=== PATIENT | female | born 1955 | race Caucasian/White ===

== ENCOUNTER 2016-12-18 10:19 | Emergency (ER) | payer OTHER ==
[~2016-12-18] VITALS: Ht 149.9 cm; Wt 104.5 kg
[~2016-12-18 10:19] MED LIST: ACET325T51 PO; ADV250INH INHALATION; ALBU2.5V4 INHALATION; ALBU8.5H4 IH; ASPI-973 PO; CEPH500C PO; CYCL10TA9 PO; CYCL5TAB PO; DILT240C85 PO; HYDR-656 PO; INSU100I SUBQ; INSU100V7 SUBQ; LOSA25TA21 PO; OMEP40CA36 PO; OXYC-474 PO; TIOT18CA3 IH
--- NOTE | 2016-12-18 10:23 | ED.REPORT ---
HPI-Abd Pain F 40 and Over Date of Service Dec 18, 2016 ED Provider: Dr. Madelyn Solis MD A 61 year old female with a history of GERD, hypertension, COPD, asthma, arthritis and diabetes mellitus presents to the ED via EMS complaining of upper abdominal discomfort that began this morning. Patient reports similar episodes of pain for the past few months but her symptoms have become progressively worse over the past 3 days. Associated symptoms include diarrhea, constipation, coughing emesis and flank pain. Patient reports that her "emesis" solely consists of phlegm. She describes her abdominal pain as "burning". Her symptoms reportedly begin after the patient "blows her nose". She denies recent fever, chills or changes in appetite. Her last BM was this morning and she describes the stool as "light brown and soft". Patient took her Omeprazole with little relief and reports using her albuterol inhaler more than normal. Nursing Notes Stated Complaint: ABDOMINAL PAIN Nursing Notes Reviewed: Yes Allergies: Coded Allergies: pramipexole Di-HCl (Verified Allergy, Severe, rash, 04/08/15) Scheduled Albuterol Neb Soln (Albuterol Neb Soln) 2.5 Mg/3 Ml Vial.neb 2.5 MG INHALATION TID Aspirin (Aspirin) 81 Mg Tablet.dr 81 MG PO DAILY Cephalexin (Cephalexin) 500 Mg Capsule 500 MG PO TID Cyclobenzaprine (Cyclobenzaprine) 5 Mg Tablet 2.5 MG PO HS Diltiazem ER (Cardizem CD) 240 Mg Cap.er.24h 240 MG PO DAILY Fluticasone/Salmeterol (Advair 250-50 Diskus) 1 Puff/Dose Puff 1 PUFF INHALATION BID Insulin Aspart (NovoLOG U-100 Pen) 100 Unit/Ml Insuln.pen 12 UNITS SUBQ TIDAC Insulin Glargine (Lantus U100 Insulin Vial) 100 Unit/Ml Vial 35 UNIT SUBQ HS Losartan Potassium (Losartan Potassium) 25 Mg Tablet 25 MG PO DAILY Omeprazole (Omeprazole) 40 Mg Capsule.dr 40 MG PO BID Tiotropium [place] (Spiriva) 18 Mcg Cap.w.dev 18 MCG IH DAILY Scheduled PRN Acetaminophen (Acetaminophen) 325 Mg Tablet 325-650 MG PO Q4H PRN PRN For Pain Albuterol HFA (Albuterol HFA) 8.5 Gm Hfa.aer.ad 2 PUFF IH Q4 PRN PRN For Shortness of Breath Cyclobenzaprine (Cyclobenzaprine) 10 Mg Tablet 10 MG PO BID PRN PRN Spasm Insulin Aspart (NovoLOG U-100 Pen) 100 Unit/Ml Insuln.pen 0-5 UNITS SUBQ sliding scale PRN PRN sliding scale Oxycodone (Roxicodone) 5 Mg Tablet 5-10 MG PO Q4H PRN PRN For Pain hydrOXYzine Hcl (HydrOXYzine Hcl) 25 Mg Tablet 25-50 MG PO Q6 HOURS PRN PRN For Spasm General Time Seen by MD: 10:22 Chief Complaint Abdominal pain Hx Obtained From: Patient, EMS Arrived By: Ambulance Sudden in Onset?: No Onset Occurred: 1 - 4 hours ago Symptom Duration: Since onset Progression since Onset: Constant Location: : Abdomen upper Quality: Burning Radiation: : Does not radiate Severity: Current: Moderate Severity: Maximum: Moderate Associated with: Reports: Constipation, Diarrhea, Vomiting, Denies: Chills, Fever Pertinent Negative: Pt denies other symptoms Recent Healthcare: No recent doctor visit, No recent hospitalization Risk Factors )( AAA Risk Stratification Hypertension Risk factors reviewed Past Medical History Past Medical History Notes: PCP: Dr. Nela Mike MD Past Medical History 1. COPD 2. GERD 3. Diabetes mellitus 4. Hypertension 5. Kidney stones 6. Asthma 7. hx methamphetamine abuse Past Surgical History 1. Bilat wrist surgery 2. Bilat ankle surgery secondary to fracture 3. Hip replacement 4. 5. Cholecystectomy 6. Inguinal hernia repair 7. Rotator cuff repair Family History Noncontributory Smoking History Former Smoker Social History Alcohol Use: Denies alcohol use Drug Use: Meth, THC Other Social History: Local resident Ambulatory Status Independent Review of Systems Constitutional: Denies: Chills, Fever GI: Reports: Abdominal pain (upper), Constipation, Diarrhea, Vomiting ( "vomiting phlegm" ) Musculoskeletal: Reports: Back pain Complete sys rev & neg: except as marked. Physical Exam Vital Signs Vital Signs (First) Date Time Temp Pulse Resp B/P Pulse Ox O2 Delivery O2 Flow Rate FiO2 12/18/16 10:26 36.5 92 154/73 96 Room Air Initial VS: Reviewed Head / Eyes: Atraumatic, Normocephalic, PERRL Neck: Supple, Non-tender, Full range of motion Extremities: Vascular intact, Neuro intact, No swelling, No tenderness Skin: Warm, Dry, No cyanosis Neurologic: Alert, Oriented, Nonfocal Psychiatric: Mood/affect normal, Behavior normal, Normal thought content General/Constitutional: Awake, Alert Respiratory / Chest: Atraumatic, Breath sounds NL, Breath sounds = bilat, No respiratory distress Cardiovascular: Heart rate NL, Regular rhythm, Heart sounds NL Abdomen: Atraumatic, Soft Tenderness/Guarding/Rebound: Positive: Guarding voluntary (Intermittent), Tender diffuse Back: Atraumatic Flank / Spine / Paraspinal: Positive: Flank tender R Interpretation & Diagnostics Lab Results Interpretation Result Diagram: 12/18/16 1050 12/18/16 1050 Test 12/18/16 10:50 12/18/16 11:15 White Blood Count 12.7th/mm3 (3.8-10.1) Red Blood Count 5.68mil/mm3 (3.90-5.20) Hemoglobin 15.1g/dL (12.0-15.6) Hematocrit 47.0% (35.0-46.0) Mean Corpuscular Volume 82.7fL (81-100) Mean Corpuscular Hemoglobin 26.6pg (27.0-35.0) Mean Corpuscular Hemoglobin Concent 32.1% (32.0-37.0) Red Cell Distribution Width 15.0% (12.3-15.4) Platelet Count 283bil/L (150-400) Neutrophils (%) (Auto) 74.0% (40-74) Lymphocytes (%) (Auto) 19.2% (14-46) Monocytes (%) (Auto) 5.3% (4-12) Eosinophils (%) (Auto) 1.0% (0-5) Basophils (%) (Auto) 0.2% (0-3) Sodium Level 139mEq/L (134-144) Potassium Level 4.2mEq/L (3.5-5.2) Chloride Level 101mEq/L (97-108) Carbon Dioxide Level 21mmol/L (18-29) Blood Urea Nitrogen 12mg/dL (8-27) Creatinine 0.52mg/dL (0.57-1.00) Estimat Glomerular Filtration Rate 171mL/min (>59) Glucose Level 258mg/dL (60-99) Calcium Level 9.1mg/dL (8.5-10.1) Magnesium Level 1.8mg/dL (1.6-2.6) Total Bilirubin 0.5mg/dL (0.0-1.2) Aspartate Amino Transf (AST/SGOT) 17U/L (0-50) Alanine Aminotransferase (ALT/SGPT) 20U/L (0-32) Alkaline Phosphatase 109U/L (25-165) Total Protein 6.8g/dL (6.4-8.4) Albumin 3.9g/dL (3.4-5.0) Lipase 23U/L (13-60) Hold St Top Tube Received (Received) Urine Color Straw (YELLOW) Urine Appearance Clear (CLEAR,HAZY) Urine pH 6.0 (5.0-8.0) Urine Specific [place] 1.005 (1.003-1.035) Urine Protein Negativemg/dL (NEG,TRACE) Urine Glucose (UA) 100mg/dL (NEGATIVE) Urine Ketones Negativemg/dL (NEGATIVE) Urine Occult Blood Negative (NEGATIVE) Urine Nitrite Negative (NEGATIVE) Urine Bilirubin Negative (NEGATIVE) Urine Urobilinogen Normalmg/dL (NORMAL) Urine Leukocyte Esterase Negative (NEGATIVE) Urine RBC 0-2/hpf (0-2) Urine WBC 0-5/hpf (0-5) Urine Epithelial Cells Few/hpf (NONE-MOD) Urine Crystals None seen (NONE SEEN) Urine Bacteria None/hpf (NONE-FEW) Urine Hyaline Casts None/lpf (NONE) Urine Granular Casts None seen (NONE SEEN) Urine Waxy Casts None seen (NONE SEEN) Urine Red Blood Cell Casts None seen (NONE SEEN) Urine White Blood Cell Casts None seen (NONE SEEN) Urine Mucus None seen (None Seen) Urine Trichomonas None seen (NONE SEEN) Urine Yeast None (NONE SEEN) Urinalysis Comment None Urine Culture Reflexed Not indicated X-Ray Chest Interpretation Chest Xray Interpretation: X-Ray Abdominal Interpretation IMPRESSION: Nonspecific bowel gas pattern, prior cholecystectomy. Prior left lower quadrant surgical clips. Dictated by: Osman Hitchcock M.D. on 12/18/2016 at 12:00 Interpretation / Wet Read by: Interpret - Radiologist Re-Eval/Medical Decision Re-Evaluation/Progress : Time of Eval: 12:24 Patient Status: Condition improved Re-Evaluation/Progress Note: I, Dr. Gates, assumed care of this patient. Labs were reviewed and patient is reexamined. Belly is soft and no surgery is required at this time. All of the patient's questions are addressed upon reexamination. She is informed of her lab results and X-ray results. Counseled Regarding: Diagnosis, Need for follow-up, When/why to return to ED Discharge & Departure Shift Change Sign-Out Patient Care Transferred: Yes Discussed Complaint(s): Yes Laboratory Evaluation: Ordered, not yet done Imaging Studies: Done, wet read by me Response to Therapy: Improved Dr. Gates Primary Impression: Constipation Constipation type: unspecified constipation type Qualified Code: K59.00 - Constipation, unspecified Additional Impression: Abdominal pain Abdominal location: generalized Qualified Code: R10.84 - Generalized abdominal pain Ruled Out: Hernia, Pneumonia, Renal stone, Appendicitis, Bowel infarction Disposition: Home Discharge Condition All VS Reviewed: Yes Condition: Improved Patient Instructions: Constipation (ED) Additional Instructions: Thank you for trusting us with your care this morning. Your emergency department evaluation including examination, lab results and chest X-ray are reassuring at this time. Your lab work did revel slightly elevated white blood cell count, but nothing that I am concerned with today. A clear cause of your symptoms was not identified at this time and I recommend you schedule a follow up appointment with Dr. Mike in the next week for a recheck. You need to talk with her specifically about the phlem and acid you are noting first thing every morning. I will send you home with a bottle of magnesium citrate. You should experience a large amount of stool within a few hours of taking the medication. If you do not experience a bowel movement within 24 hours, please drink another bottle. You may purchase this at a grocery store. Please use Miralax, one capful of the powder every morning, to help stimulate a soft bowel movement. This should help relieve your abdominal discomfort and may even help with the acid feelings in the morning. Please return to the ED if you begin to experience any new or worsening symptoms including any worsening abdominal pain, nausea, vomiting, lightheadedness, chills or fever. Referrals: Nela Mike MD (PCP) Care Transferred to: Dr. Gates Care Transferred at: 12:00 Scribe Attestation Portions of this note were transcribed by Ayan Chaudhary. Dr. Will Delaney and Dr. Gates personally performed the history, physical exam and medical decision- making; I reviewed and confirmed the accuracy of the information in the transcribed note. Signed by: Catherine Bangura, 12/18/16 1240. copies to: Nela Mike MD, Jena M MD Dec 18, 2016 10:23 AYAN CHAUDHARY Dec 18, 2016 10:30 Shanna Gates MD Dec 18, 2016 12:50
[2016-12-18 10:26] VITALS: BP 154/73; PULSE 92; O2SAT 96
[2016-12-18] MEDS ORDERED: Pantoprazole 4 mg/mL 10 mL Inj IVPUSH ONE (10:35)
[2016-12-18] MEDS ORDERED: 0.9% Sodium Chloride 1,000 ML IV ONE (10:35)
[2016-12-18] MEDS ORDERED: Sucralfate 100 mg/mL 10 mL Suspension PO ONE (10:35)
[2016-12-18] MEDS ORDERED: HYDROcodone-APAP 5-325 mg Tablet PO ONE (10:35)
[2016-12-18 11:07] LABS: BASOPHILS % (AUTO) 0.2 % (0-3); MONOCYTES % (AUTO) 5.3 % (4-12); Mean Corpuscular Hemoglobin 26.6 pg (27.0-35.0); Mean Corpuscular Volume 82.7 fL (81-100); Platelet Count 283 bil/L (150-400)
[2016-12-18 11:59] LABS: Magnesium 1.8 mg/dL (1.6-2.6)
[2016-12-18 12:00] LABS: APPEARANCE,URINE CLEAR (CLEAR,HAZY); COLOR,URINE STRAW (YELLOW); OCCULT BLOOD,URINE NEGATIVE (NEGATIVE); UROBILINOGEN,URINE NORMAL (NORMAL)
--- NOTE | 2016-12-18 12:02 | DRSVH ---
PROCEDURE: X-RAY ACUTE ABDOMINAL SERIES ([id number]) INDICATIONS: general abdominal pain TECHNIQUE: One view chest and two views of the abdomen were acquired. COMPARISON: [facility], , [facility] ACUTE SERIES, 04/30/2013, 14:00. [facility], , [facility] ACUTE SERIES, 01/10/2013, 13:39. FINDINGS: Surgical changes and devices: Prior spine surgery, cholecystectomy clips, surgical clips right lower quadrant. Chest: Lungs are clear. Heart size is normal. No pleural effusions. No pneumoperitoneum. Abdomen: Bowel gas pattern is normal. No suspicious calcifications. Visualized solid organ contour s appear normal. Bones: No suspicious bony lesions. IMPRESSION: Nonspecific bowel gas pattern, prior cholecystectomy. Prior left lower quadrant surgical clips. Dictated by: Osman Hitchcock M.D. on 12/18/2016 at 12:00 Approved by: Osman Hitchcock M.D. on 12/18/2016 at 12:00
[2016-12-18 12:43] VITALS: BP 135/56; PULSE 65; O2SAT 93
[2016-12-18] MEDS ORDERED: POLY17PO2 PO (12:53)
[2016-12-18 13:01] VITALS: BP 135/56; PULSE 65; O2SAT 93
== END 2016-12-18 13:10 | disposition home or self-care (01) ==
LOC: SED 10:19 → EDUNIT# 10:19 → EDBD 10:19 → SED 13:10
DX: K59.00 Constipation, unspecified (principal); E11.9 Type 2 diabetes mellitus without complications; K21.9 Gastro-esophageal reflux disease without esophagitis; J44.9 Chronic obstructive pulmonary disease, unspecified; Z87.891 Personal history of nicotine dependence; Z79.82 Long term (current) use of aspirin; Z79.4 Long term (current) use of insulin; Z79.899 Other long term (current) drug therapy; Z88.8 Allergy status to other drugs, medicaments and biological substances
CPT/HCPCS: 36415; 74022; 80053; 81000; 82948; 83690; 83735; 85025; 96361; 96374; 99285; J7030

== ENCOUNTER 2017-04-26 16:35 | Inpatient (IN) | payer OTHER, MEDICAID ==
[~2017-04-26] VITALS: Ht 149.9 cm; Wt 102.6 kg
[2017-04-26] VITALS (8 sets, daily range): BP systolic 126–147; BP diastolic 74–84; PULSE 74–100; RESP 16–24; O2SAT 92–98
[~2017-04-26 16:35] MED LIST changes: +POLY17PO2 PO
--- NOTE | 2017-04-26 16:59 | ED.REPORT ---
HPI-Dyspnea / Wheezing Date of Service Apr 26, 2017 ED Provider: Robina Layne History of Present Illness: Sent over by teofilo a female in pulmonary . finishing a steroid taper. Did not see pulmonolgy but was seen in primray care and told not to go to urgent care by pulmonology. does breathing treatment 3 times a day , albuterol only no recent chest xray on steroids for 3 weeks. Initially had a course of azithromycin also Nursing Notes Stated Complaint: SENT BY Chief Complaint: Respiratory Complaints Nursing Notes Reviewed: Yes Allergies: Coded Allergies: pramipexole Di-HCl (Verified Allergy, Severe, rash, 04/26/17) Scheduled Albuterol Neb Soln (Albuterol Neb Soln) 2.5 Mg/3 Ml Vial.neb 2.5 MG INHALATION TID Aspirin (Aspirin) 81 Mg Tablet. 81 MG PO DAILY Cephalexin (Cephalexin) 500 Mg Capsule 500 MG PO TID Cyclobenzaprine (Cyclobenzaprine) 5 Mg Tablet 2.5 MG PO HS Diltiazem ER (Cardizem CD) 240 Mg Cap.er.24h 240 MG PO DAILY Fluticasone/Salmeterol (Advair 250-50 Diskus) 1 Puff/Dose Puff 1 PUFF INHALATION BID Insulin Aspart (NovoLOG U-100 Pen) 100 Unit/Ml Insuln.pen 12 UNITS SUBQ TIDAC Insulin Glargine (Lantus U100 Insulin Vial) 100 Unit/Ml Vial 35 UNIT SUBQ HS Losartan Potassium (Losartan Potassium) 25 Mg Tablet 25 MG PO DAILY Omeprazole (Omeprazole) 40 Mg Capsule.dr 40 MG PO BID Polyethylene Glycol 3350 (Polyethylene Glycol 3350) 17 Gm Powd.pack 17 GM PO DAILY 17gm, 1 capfull, with your coffee in the am. Extra water will help as well. Tiotropium [place] (Spiriva) 18 Mcg Cap.w.dev 18 MCG IH DAILY Scheduled PRN Acetaminophen (Acetaminophen) 325 Mg Tablet 325-650 MG PO Q4H PRN PRN For Pain Albuterol HFA (Albuterol HFA) 8.5 Gm Hfa.aer.ad 2 PUFF IH Q4 PRN PRN For Shortness of Breath Cyclobenzaprine (Cyclobenzaprine) 10 Mg Tablet 10 MG PO BID PRN PRN Spasm Insulin Aspart (NovoLOG U-100 Pen) 100 Unit/Ml Insuln.pen 0-5 UNITS SUBQ sliding scale PRN PRN sliding scale Oxycodone (Roxicodone) 5 Mg Tablet 5-10 MG PO Q4H PRN PRN For Pain hydrOXYzine Hcl (HydrOXYzine Hcl) 25 Mg Tablet 25-50 MG PO Q6 HOURS PRN PRN For Spasm General Time Seen by MD: 16:57 Chief Complaint Shortness of breath, Other (copd excerbation) Hx Obtained From: Patient Sudden in Onset?: No Onset Occurred: More than a week ago... (3 weeks) Past Medical History Past Medical History Notes: PCP: Dr. Nela Mike MD Past Medical History 1. COPD 2. GERD 3. Diabetes mellitus 4. Hypertension 5. Kidney stones 6. Asthma 7. hx methamphetamine abuse Reports: COPD, Hyperlipidemia, Hypertension Past Surgical History 1. Bilat wrist surgery 2. Bilat ankle surgery secondary to fracture 3. Hip replacement 4. 5. Cholecystectomy 6. Inguinal hernia repair 7. Rotator cuff repair Family History Noncontributory Smoking History Former Smoker Social History Alcohol Use: Denies alcohol use Drug Use: Meth, THC Other Social History: Local resident Occupation lives by self, 1 story apartment on the first floor. no work or school 04/26/2017 Ambulatory Status Independent Review of Systems Basic Review of Systems Eyes: Vision NL, No discharge GI: No vomiting : No dysuria, No frequency Endocrine: No cold intolerance, No heat intolerance Physical Exam Initial Vital Signs Vital Signs (First) Date Time Temp Pulse Resp B/P Pulse Ox O2 Delivery O2 Flow Rate FiO2 04/26/17 16:43 36.7 100 24 141/83 94 Room Air Initial VS: Reviewed, Vital signs normal Head / Eyes: Atraumatic, Normocephalic, PERRL ENT: Mucous membranes moist, Conjunctiva normal, No scleral icterus Abdomen / GI: Soft, Non-tender, No guarding, No rebound, No distention Back: No CVA tenderness Lymphatic: No lymphadenopathy Extremities: Vascular intact, Neuro intact, No swelling, No tenderness Skin: Warm, Dry, No cyanosis Neurologic: Alert, Oriented, Nonfocal Psychiatric: Mood/affect normal, Behavior normal, Normal thought content General/Constitutional: Awake, Alert, No acute distress, Well appearing, Well developed, Well hydrated, Well nourished, Cooperative, Not toxic appearing Neck: Atraumatic, Supple, No meningismus, Full range of motion, No adenopathy Respiratory / Chest: Atraumatic breath sounds greatly decreased through out. Minimal air movement. patient with increased RR with any movement. At rest patient is comfortable, with movement sats drop to 88% Cardiovascular: Heart rate NL, Regular rhythm, Heart sounds NL, No gallop, No murmurs, No rubs ENT: Atraumatic, Airway patent, Mucous membranes moist, Pharynx NL Abdomen: Atraumatic, Soft, Non-tender Interpretation & Diagnostics Lab Results Interpretation Result Diagram: 04/26/17 1815 04/26/17 1913 Test 04/26/17 18:15 04/26/17 19:13 White Blood Count 16.6th/mm3 (3.8-10.1) Red Blood Count 5.61mil/mm3 (3.90-5.20) Hemoglobin 15.0g/dL (12.0-15.6) Hematocrit 45.7% (35.0-46.0) Mean Corpuscular Volume 81.5fL (81-100) Mean Corpuscular Hemoglobin 26.7pg (27.0-35.0) Mean Corpuscular Hemoglobin Concent 32.8% (32.0-37.0) Red Cell Distribution Width 14.3% (12.3-15.4) Platelet Count 318bil/L (150-400) Neutrophils (%) (Auto) 70.5% (40-74) Lymphocytes (%) (Auto) 23.9% (14-46) Monocytes (%) (Auto) 5.0% (4-12) Eosinophils (%) (Auto) 0.1% (0-5) Basophils (%) (Auto) 0.1% (0-3) Lactic Acid Level 1.6mmol/L (0.4-2.0) Sodium Level 141mEq/L (134-144) Potassium Level 4.6mEq/L (3.5-5.2) Chloride Level 103mEq/L (97-108) Carbon Dioxide Level 23mmol/L (18-29) Blood Urea Nitrogen 18mg/dL (8-27) Creatinine 0.64mg/dL (0.57-1.00) Estimat Glomerular Filtration Rate 134mL/min (>59) Glucose Level 145mg/dL (60-99) Calcium Level 9.3mg/dL (8.5-10.1) Total Bilirubin 0.2mg/dL (0.0-1.2) Aspartate Amino Transf (AST/SGOT) 20U/L (0-50) Alanine Aminotransferase (ALT/SGPT) 19U/L (0-32) Alkaline Phosphatase 98U/L (25-165) Troponin T < 0.010ug/L (0.0-0.011) Pro-B-Type Natriuretic Peptide 101.7pg/mL (0-287) Total Protein 6.7g/dL (6.4-8.4) Albumin 3.5g/dL (3.4-5.0) Procalcitonin 0.02ng/mL (0.00-0.08) X-Ray Chest Interpretation Chest Xray Interpretation: PROCEDURE: CT FACE WITH CONTRAST ([id number]) INDICATIONS: ? anything behind eye ? anything drainable TECHNIQUE: After the administration of intravenous contrast, 3.0 mm axial sections acquired from the mid-neck to the frontal sinuses, with coronal reformatting. For radiation dose reduction, the following was used: automated exposure control. COMPARISON: None. FINDINGS: Image quality: Good Soft tissues: There is soft tissue swelling over the nose, left frontal and temporal portions of the scalp and face done over the orbit and to the level approximately of the mid maxillary sinus. The soft tissue swelling is all pre-septal. No post septal edema or intra-or extraconal abnormality is seen. Visualized portion of brain is considered normal. Vascular: Visualized vascular structures appear patent throughout. Bony vascular foramina and canals appear normal. Bones: Facial bones appear intact, without fractures, erosions, or destruction. Visualized portions of the skull base and auditory canals also appear normal. Sinuses: Paranasal sinuses are aerated without fluid levels, mucosal thickening, or mucoceles. Mastoid air cells are aerated. IMPRESSION: Prominent subcutaneous edema/inflammation over the left side of the face. No intracranial involvement is seen. No post septal orbital involvement is seen. Sinuses are clear. No radiopaque foreign bodies are seen. Dictated by: Brad Foy M.D. on 04/26/2017 at 18:23 Approved by: Brad Foy M.D. on 04/26/2017 at 18:28 Re-Eval/Medical Decision Med Decision/Clinical Course 61 year old female presents for SOB. Has been on steroid taper 3 different times with the first week was also on antibiotics. Was seen at primary care today who consulted with pulmonology, recommend to ER . No sign of pneumonia, OR or congestive heart failure. Patient with significant SOB with any movement, admit Discharge & Departure Impression: Primary Impression: COPD exacerbation Disposition: ADMITTED TO HOSPITAL Referrals: Nela Mike MD (PCP) EDSupervising Provider for APC: Corey Begum MD copies to: Nela Mike MD, Sue ARNP Apr 26, 2017 16:59
[2017-04-26] MEDS ORDERED: Albuterol-Ipratropium 3 mL Inhalation Solution NEB ONE ×2 (17:00→19:00)
--- NOTE | 2017-04-26 18:16 | DRSVH ---
PROCEDURE: X-RAY CHEST, TWO VIEWS ([id number]) INDICATIONS: cough sob TECHNIQUE: 2 views of the chest were acquired. COMPARISON: [facility], CR, XR ABD ACUTE SERIES 3VW, 12/18/2016, 10:59. FINDINGS: Surgical changes and devices: sports doctor leads are present. Vascular clips consistent with inna cystectomy are present. Lungs and pleura: No pleural effusions or pneumothorax. Lungs are clear. Mediastinum: Mediastinal contours are normal. Heart size is normal. Bones and chest wall: No suspicious bony abnormalities. Soft tissues appear unremarkable. IMPRESSION: Acute disease is not identified in the two-view chest. Dictated by: Brad Foy M.D. on 04/26/2017 at 18:14 Approved by: Brad Foy M.D. on 04/26/2017 at 18:15
[2017-04-26 18:27] LABS: BASOPHILS % (AUTO) 0.1 % (0-3); EOSINOPHILS % (AUTO) 0.1 % (0-5); Mean Corpuscular Hemoglobin 26.7 pg (27.0-35.0); Mean Corpuscular Volume 81.5 fL (81-100); NEUTROPHILS % (AUTO) 70.5 % (40-74); Platelet Count 318 bil/L (150-400)
[2017-04-26] MEDS ORDERED: MethylprednisoLONE Sodium Succinate 62.5 mg/mL 2 mL Inj IVPUSH ONE (19:00)
[2017-04-26] MEDS ORDERED: Alum-Mag Hydrox-Simeth 30 mL Suspension PO PRN (19:35)
[2017-04-26] MEDS ORDERED: Ondansetron 2 mg/mL 2 mL Inj IVPUSH PRN (19:35)
[2017-04-26 19:43] LABS: TROPONIN T < 0.010 ug/L (0.0-0.011)
--- NOTE | 2017-04-26 20:09 | PCM.HPMED ---
Subjective Date of Service Apr 26, 2017 Primary Provider: Admitting Physician: Primary Care Physician: Nela Mike MD Attending Physician: Admit Status: From the Emergency Department Chief Complaint: shortness of breath History of Present Illness: Patient is a 61-year-old female presented from home to the ED with respiratory symptoms She carries a medical history significant for diabetes type II, hypertension, dyslipidemia, COPD, and obstructive sleep apnea in addition to depression, anxiety/PTSD with the prior history of cocaine and methamphetamine use. Patient states significant shortness of breath with associated wheezing, increasing productive cough, copious sputum, and nasal congestion. Color of her mucus is initially brown, now white. Symptoms started about 3 weeks ago where she initially amoxicillin. Symptoms however was went unabated. One week ago, patient reported significant shortness of breath with exertion. She was only able to walk from bedroom to toilet without shortness of breath, whereas before she was able to walk from house to mailbox. Additionally, patient has increase in oxygen requirement, using 2-2.5 L during the daytime as well as nighttime. A course of azithromycin and prednisone has not helped. Patient contacted assembly inspector, which is just the patient be evaluated in the ED. In the ED, patient vitals remained stable with O2 93% on room air. Patient had significant active cough, wheezing with labs WBC 16.6. Patient given 1 dose of Solu-Medrol and 2 rounds of DuoNeb's prior to admission onto the floor for COPD exacerbation. Review of Systems: A comprehensive review of systems was conducted with the patient and found to be negative except as above in the History of Present Illness. Allergies Coded Allergies: pramipexole Di-HCl (Verified Allergy, Severe, rash, 04/26/17) Home Medications Albuterol HFA when necessary Aspirin 81 mg Cephalexin 500 mg 3 times a day Cyclobenzaprine 10 mg twice a day when necessary Cardizem 240 mg daily Advair 250/50 500 one puff twice a day Hydroxyzine 25-50 mg every 6 hours when necessary Insulin Lantus 35 units nightly NovoLog per sliding scale Losartan 25 mg daily Omeprazole 40 mg twice a day Roxicodone 510 milligram by mouth every 4 hours when necessary Polyethylene glycol when necessary Spiriva 18 MCG daily PMH Hypertension Dyslipidemia Diabetes type II Morbid obese Obstructive sleep apnea Osteoarthritis Fibromyalgia GERD Depression Anxiety/PTSD History of cocaine/methamphetamine use Surgical History Abdominal hernia status post ventral hernia repair Cholecystectomy Ankle fracture status post open reduction internal fixation Family History Father with seizure disorder Mother with diabetes Social History Hx Alcohol Use: No Hx Substance Use: Yes (marijuana daily (3 bowls/day )) Hx Tobacco Use: Yes (45 pack years, quit 1 year ago) Smoking Status: Former Smoker Exam Vital Signs Vital Sign - Last Date Time Temp Pulse Resp B/P Pulse Ox O2 Delivery O2 Flow Rate FiO2 04/26/17 19:19 83 20 93 Room Air 04/26/17 17:40 126/84 04/26/17 16:43 36.7 Exam General: No acute distress, appropriately interactive, speaking full sentences HEENT: Normocephalic, atraumatic. PERRLA, EOMI, Anicteric sclerae, moist conjunctivae. Neck: No JVD, No bruits. No lymphadenopathy or thyromegaly. Cardiovascular: Regular rate and rhythm with no murmurs, rubs, or gallops appreciated Pulmonary: Bilateral air sound, significant wheezes, coarse breath, no crackles however, no accessory muscle use Abdomen: +Bowel sound, Soft, nontender, nondistended. Extremities: No clubbing or cyanosis, no lymphedema, no b/l lower leg edema Skin: Normal temperature, turgor, and texture; no rash. No visualized skin ulcer. Neurological: CN II-VII grossly intact, moving equally on all 4 extremities Psychiatric: Normal mood and affect. AOx3 Lab and Diagnostics Result Diagram: 04/26/17 1815 04/26/17 1913 X-Rays, CTs and MRIs PROCEDURE: X-RAY CHEST, TWO VIEWS ([id number]) INDICATIONS: cough sob IMPRESSION: Acute disease is not identified in the two-view chest. Dictated by: Brad Foy M.D. on 04/26/2017 at 18:14 Assessment & Plan Patient is a 61-year-old female with a medical history significant for diabetes type II, hypertension, dyslipidemia, COPD, and obstructive sleep apnea in addition to depression, anxiety/PTSD with the prior history of cocaine and methamphetamine use admitted for COPD exacerbation. Acute on chronic respiratory failure, POA -trigger likely viral, post-viral pna? -DuoNeb, Solu-medrol 125mg Q6H, can switch for prednisone 40mg daily. -NC to O2 93%. COPD exacerbation, POA -treatment as above -ceftriaxone / azithromycin Leukocytosis -no neutrophilic elevation, negative procalcitonin 0.2, -likely steroid induced, some concerns for PNA -Blood, sputum culture, urine antigen, viral PCR ordered -ceftriaxone plus azithromycin Diabetes type II -Continue home Lantus 35 units at bedtime -Lispro medium sliding scale -A1c pending Hypertension -Continue home losartan and Cardizem GERD -Protonix 40 mg twice a day CODE STATUS full code DVT prophylaxis heparin subcutaneous Patient Status: Patient is admitted under inpatient status with expected length of stay GREATER than 2 midnights due to severity of presenting symptoms, risk of adverse event, and complexity of treatment plan. GI Prophylaxis: Proton Pump Inhibitor VTE Prophylaxis: Sub-Q Heparin (Unfractionated) Resuscitation Status: CPR: Attempt Resuscitation Attending Statement The patient was seen and examined together with house staff on 04/26/2017 and I agree with the history, exam and plan as outlined in the note above. Nando Dunn DO Apr 26, 2017 20:08 Ivy Kee DO Apr 27, 2017 02:09
[2017-04-26] MEDS: Albuterol-Ipratropium 3 mL Inhalation Solution NEB SCH (21:07)
[2017-04-26] MEDS ORDERED: 0.9% Sodium Chloride 100 ML ONE (22:08)
[2017-04-26] MEDS: cefTRIAXone Inj 2,000 MG in Dextrose 5% Minibag Plus 50 ML IV SCH (22:12)
[2017-04-26 22:31] LABS: APPEARANCE,URINE HAZY (CLEAR,HAZY); COLOR,URINE STRAW (YELLOW); OCCULT BLOOD,URINE NEGATIVE (NEGATIVE); PH,URINE 5.5 (5.0-8.0); UROBILINOGEN,URINE NORMAL (NORMAL)
--- NOTE | 2017-04-26 22:54 | NUR ---
Admit Pt arrived on unit #[id number] via stretcher from ED with all personal belongings. VSS. No complaints of pain or discomfort. SOB with exertion and at rest. Allergy sticker placed on armband. Admit completed by Admit RNCatalina. Unable to complete home medication list as pt is poor historian. Pt orders medications through the mail. She will call her son in the am and have him bring medication list in. Oriented to unit hospital and fall policy. Bed locked, low position. SBA and non slip socks on for safety. Call light within reach, using appropriately. Frequent rounding in place. Pleasant and cooperative with care.
[2017-04-26] MEDS: Azithromycin Inj 500 MG in Dextrose 5% w/Vial Mate 250 ML IV SCH (22:59)
--- NOTE | 2017-04-26 23:30 | NUR ---
ADMIT NOTE Pt arrived to the unit at 2039 via gurney. She was alert and oriented x4, able to ambulate independent from outside the room to bed. Gait steady, denies chest pain, but c/o SOB. All vital signs stable with BP slightly elevated 147/74, afebrile. Pt was on RA and was able to communicate needs. Oriented to room and equipment; encouraged to call when going to bathroom, pt indicates understanding. Admit data base and admit assessment done. Med reconciliation done but not complete, pt unable to remember some meds, but reported she will ask family to bring meds in tomorrow. Skin intact, some redness noted on lateral side of right great toe, per family she "bumped onto her walker". Area open to air, no open skin noted.
[2017-04-27] VITALS (12 sets, daily range): BP systolic 123–152; BP diastolic 67–85; PULSE 75–102; RESP 18–20; O2SAT 89–96
[2017-04-27] MEDS ORDERED: Albuterol-Ipratropium 3 mL Inhalation Solution NEB PRN (00:10)
[2017-04-27] MEDS ORDERED: Glucose 40% Oral Gel 15 Gm Tube PO PRN (00:10)
[2017-04-27] MEDS: Insulin GLARgine 100 Unit/mL Syringe SUBQ SCH ×2 (00:10→20:29)
[2017-04-27] MEDS ORDERED: Dextrose 10% 250 ML IV PRN (00:20)
[2017-04-27] MEDS: Heparin 5,000 Unit/mL Inj SUBQ SCH ×3 (03:30→17:23)
[2017-04-27] MEDS: MethylprednisoLONE Sodium Succinate 62.5 mg/mL 2 mL Inj IVPUSH SCH ×3 (03:30→14:41)
[2017-04-27] MEDS ORDERED: Albuterol 2.5 mg/3 mL Inhalation Solution NEB ONE (05:05)
[2017-04-27 06:22] LABS: BASOPHILS % (AUTO) 0.1 % (0-3); EOSINOPHILS % (AUTO) 0 % (0-5); MONOCYTES % (AUTO) 1.2 % (4-12); Mean Corpuscular Hemoglobin 26.4 pg (27.0-35.0); Mean Corpuscular Volume 80.8 fL (81-100); Platelet Count 301 bil/L (150-400)
--- NOTE | 2017-04-27 06:37 | NUR ---
PAIN Pt complained of abdominal pain stating, "It started awhile ago and only hurts sometimes." Pt denies constipation. No redness or swelling. Administered Tylenol, effective. Pt reports no pain at this time. Will continue to monitor.
[2017-04-27] MEDS: Insulin LISPRO 300 Unit/3 mL Inj SUBQ SCH ×4 (07:26→20:28)
[2017-04-27] MEDS: Diltiazem CD 240 mg ER24 Capsule PO SCH (07:27)
[2017-04-27] MEDS: Pantoprazole 40 mg ER24 Tablet PO SCH ×2 (07:36→20:29)
[2017-04-27] MEDS: Albuterol-Ipratropium 3 mL Inhalation Solution NEB SCH ×4 (08:29→21:46)
--- NOTE | 2017-04-27 09:13 | NUR ---
Social Work-initial assessment: Data:See initial assessment. Pt is a 61 y/o female who was admitted on 04/26/17 for COPD exacerbation per H&P. Pt's insurance is [facility] Blind/disabled and PCP is Martha Mike MD. EMR reviewed. SW met with pt at bedside, SW role explained. Pt is alert and oriented x3. Pt resides at home alone in a ground level apartment where she remains independent with basic ADLS. Pt uses a fww at baseline and does not drive. Pt uses dial a ride for transport. Pt has no HH history, but has been to [facility] in the past. Pt has no retirement care insurance or VA benefits. SW discussed DPOA/ advanced directive, pt has not completed this, SW provided pt with paperwork. Pt has Home O2 and Nebulizer through [facility] at home. Pt states her O2 is only for night time use. Pt states she is enrolled in [employer], but cannot remember her workers name. Pt states that either her son will provide transport home or she will need to use Dial a ride. No concerns noted at this time for pt's capacity for self care from RN or MD. SW provided pt with discharge planning checklist and encouraged pt to call with any questions,phone number provided on white board in the room. SW will continue to follow. Assessment:Pt who is independent at baseline. Plan:Pt to discharge home when medically stable via POV. No discharge needs identified. SW will continue to follow for needs. DEQUAN Wright Addendum: 04/27/17 at 0928 by IDALIA STAPELTON Amended: Links added.
--- NOTE | 2017-04-27 17:06 | PCM.PNMED ---
Subjective Date of Service Apr 27, 2017 Subjective Breathing has already improved significantly since admission, but certainly not yet back to baseline. Appetite is good. Some cough which is productive of whitish sputum. NO other acute complaints. Denies fever/chills/sweat. Exam Vital Signs Vital Sign - Last Date Time Temp Pulse Resp B/P Pulse Ox O2 Delivery O2 Flow Rate FiO2 04/27/17 16:34 36.9 83 19 134/70 95 Room Air 04/27/17 16:04 1.00 Intake and Output 04/26/17 04/26/17 04/27/17 Cumulative From/Thru 15:00 23:00 07:00 04/26/17 16:43 - 04/27/17 05:33 Intake Total 673 ml 673 ml Output Total 1150 ml 1150 ml Balance -477 ml -477 ml Intake Oral 673 ml 673 ml Output Urine Total 1150 ml 1150 ml General: Alert, Oriented X3, Cooperative, Mild Distress Chest & Lungs: Clear to auscultation & percussion, Expiratory wheezes Cardiovascular: Regular Rate/Rhythm Abdomen: Other (obese but nontender/distended) Extremities: No cyanosis/clubbing/edma bilat Neurological: Grossly Neurologically Intact IVs and Medications Medications Reviewed: Medications were reviewed in detail Lab and Diagnostics Result Diagram: 04/27/17 0545 04/27/17 0545 X-Rays, CTs and MRIs PROCEDURE: X-RAY CHEST, TWO VIEWS ([id number]) INDICATIONS: cough sob IMPRESSION: Acute disease is not identified in the two-view chest. Dictated by: Brad Foy M.D. on 04/26/2017 at 18:14 Assessment & Plan Patient is a 61-year-old female with a medical history significant for diabetes type II, hypertension, dyslipidemia, COPD, and obstructive sleep apnea in addition to depression, anxiety/PTSD with the prior history of cocaine and methamphetamine use admitted for COPD exacerbation. Acute on chronic respiratory failure, POA - Trigger likely viral, post-viral pna? PCR remains pending - DuoNebs continued, Solu-medrol 125mg Q6H, day #1, now switch for prednisone 40mg daily. - NC to O2 93%. COPD exacerbation, POA - Treatment as above - Continue Ceftriaxone / azithromycin Leukocytosis -No neutrophilic elevation, negative procalcitonin 0.2, -likely steroid induced, some concerns for PNA -Blood, sputum culture, urine antigen, viral PCR ordered -ceftriaxone plus azithromycin Diabetes type II -Continue home Lantus 35 units at bedtime -Lispro medium sliding scale -A1c pending Hypertension -Continue home losartan and Cardizem GERD -Protonix 40 mg twice a day Pain Evaluation: Adequate Pain Control GI Prophylaxis: Proton Pump Inhibitor VTE Prophylaxis: Sub-Q Heparin (Unfractionated) Resuscitation Status: CPR: Attempt Resuscitation Time spent 30 minutes Basil Wilcox DO Apr 27, 2017 17:06
--- NOTE | 2017-04-27 18:02 | NUR ---
Blood glucose Pts lunch and dinner glucose reading were 351 and 381. notified. Pt did not get lantus for some reason last night and is on a high dose of Solu-Medrol
[2017-04-27] MEDS: cefTRIAXone Inj 2,000 MG in Dextrose 5% Minibag Plus 50 ML IV SCH (20:29)
[2017-04-27] MEDS: Azithromycin Inj 500 MG in Dextrose 5% w/Vial Mate 250 ML IV SCH (21:11)
[2017-04-28] VITALS (7 sets, daily range): BP systolic 134–147; BP diastolic 62–77; PULSE 77–99; RESP 18; O2SAT 91–94
[2017-04-28] MEDS: Heparin 5,000 Unit/mL Inj SUBQ SCH ×2 (00:49→08:00)
--- NOTE | 2017-04-28 06:07 | NUR ---
Blood Glucose Pt blood glucose 415 at 2030. Administered HS Lantus and sliding scale. 2100 Rechecked BG, 350. 0 Rechecked BG, 258. 2200 recheck, 199. Continuing to monitor.
[2017-04-28 06:10] LABS: BASOPHILS % (AUTO) 0 % (0-3); EOSINOPHILS % (AUTO) 0 % (0-5); MONOCYTES % (AUTO) 5.6 % (4-12); Mean Corpuscular Hemoglobin 26.5 pg (27.0-35.0); Mean Corpuscular Volume 80.9 fL (81-100); NEUTROPHILS % (AUTO) 85.1 % (40-74); Platelet Count 311 bil/L (150-400)
[2017-04-28] MEDS: Albuterol-Ipratropium 3 mL Inhalation Solution NEB SCH ×2 (07:28→11:34)
[2017-04-28] MEDS: Diltiazem CD 240 mg ER24 Capsule PO SCH (07:58)
[2017-04-28] MEDS: Insulin LISPRO 300 Unit/3 mL Inj SUBQ SCH ×2 (07:58→11:29)
[2017-04-28] MEDS: Pantoprazole 40 mg ER24 Tablet PO SCH (07:59)
[2017-04-28] MEDS ORDERED: predniSONE 20 mg Tablet PO SCH (08:30)
--- NOTE | 2017-04-28 10:45 | PCM.DC.MED ---
Discharge Summary Date of Service Apr 28, 2017 Dates of Hospitalization Date of Hospital Admission Apr 26, 2017 at 20:07 Date of Discharge: Apr 28, 2017 Providers: Admitting Physician: Ivy Kee DO Primary Care Physician: Nela Mike MD Attending Physician: Basil Wilocx DO Diagnosis at Time of Discharge Diagnosis at Time of Discharge COPD exacerbation Procedures XRay, CTs & MRIs PROCEDURE: X-RAY CHEST, TWO VIEWS ([id number]) INDICATIONS: cough sob IMPRESSION: Acute disease is not identified in the two-view chest. Dictated by: Brad Foy M.D. on 04/26/2017 at 18:14 Brief History As per admission HPI by admitting physician, " Patient is a 61-year-old female presented from home to the ED with respiratory symptoms She carries a medical history significant for diabetes type II, hypertension, dyslipidemia, COPD, and obstructive sleep apnea in addition to depression, anxiety/PTSD with the prior history of cocaine and methamphetamine use. Patient states significant shortness of breath with associated wheezing, increasing productive cough, copious sputum, and nasal congestion. Color of her mucus is initially brown, now white. Symptoms started about 3 weeks ago where she initially amoxicillin. Symptoms however was went unabated. One week ago, patient reported significant shortness of breath with exertion. She was only able to walk from bedroom to toilet without shortness of breath, whereas before she was able to walk from house to mailbox. Additionally, patient has increase in oxygen requirement, using 2-2.5 L during the daytime as well as nighttime. A course of azithromycin and prednisone has not helped. Patient contacted distributor cleaner, which is just the patient be evaluated in the ED. In the ED, patient vitals remained stable with O2 93% on room air. Patient had significant active cough, wheezing with labs WBC 16.6. Patient given 1 dose of Solu-Medrol and 2 rounds of DuoNeb's prior to admission onto the floor for COPD exacerbation. " Hospital Course Acute on chronic respiratory failure, POA - Though underlying cause of exacerbation is unclear, pt has responded well to steroid therapy in addition to antibiotic prescription. - Viral PCR negative, as were blood cultures - DuoNebs continued through hospital stay and Solu-medrol 125mg IV transitioned to PO Prednisone 1 day prior to discharge - Plan to DC home on 3 addition days of Azithromycin in addition to 4 additional days of Prednisone 40mg PO daily Leukocytosis; Resolved Diabetes type II -Continued home Lantus 35 units at bedtime -Lispro medium sliding scale while in hospital -A1c on 8.1 demonstrated sub-optimal control. May consider medication alterations in out-patient setting. Hypertension -Continue home losartan and Cardizem GERD -Protonix 40 mg twice a day Exam Vital Signs (Last) Date Time Temp Pulse Resp B/P Pulse Ox O2 Delivery O2 Flow Rate FiO2 04/28/17 08:38 36.8 99 18 147/76 92 Nasal Cannula 1.00 Exam General: Alert, Oriented X3, Cooperative, Mild Distress Chest & Lungs: Clear to auscultation & percussion, Expiratory wheezes Cardiovascular: Regular Rate/Rhythm Abdomen: Obese but nontender/distended) Extremities: No cyanosis/clubbing/edema bilat Neurological: Grossly Neurologically Intact Test 04/26/17 18:15 04/26/17 19:13 04/26/17 22:00 04/27/17 00:26 Lactic Acid Level 1.6mmol/L (0.4-2.0) Total Bilirubin 0.2mg/dL (0.0-1.2) Aspartate Amino Transf (AST/SGOT) 20U/L (0-50) Alanine Aminotransferase (ALT/SGPT) 19U/L (0-32) Alkaline Phosphatase 98U/L (25-165) Troponin T < 0.010ug/L (0.0-0.011) Pro-B-Type Natriuretic Peptide 101.7pg/mL (0-287) Total Protein 6.7g/dL (6.4-8.4) Albumin 3.5g/dL (3.4-5.0) Urine Color Straw (YELLOW) Urine Appearance Hazy (CLEAR,HAZY) Urine pH 5.5 (5.0-8.0) Urine Specific [place] 1.025 (1.003-1.035) Urine Protein Negativemg/dL (NEG,TRACE) Urine Glucose (UA) 100mg/dL (NEGATIVE) Urine Ketones Negativemg/dL (NEGATIVE) Urine Occult Blood Negative (NEGATIVE) Urine Nitrite Negative (NEGATIVE) Urine Bilirubin Negative (NEGATIVE) Urine Urobilinogen Normalmg/dL (NORMAL) Urine Leukocyte Esterase Negative (NEGATIVE) Urine RBC 0-2/hpf (0-2) Urine WBC 0-5/hpf (0-5) Urine Epithelial Cells Few/hpf (NONE-MOD) Urine Crystals None seen (NONE SEEN) Urine Bacteria Few/hpf (NONE-FEW) Urine Hyaline Casts None/lpf (NONE) Urine Granular Casts None seen (NONE SEEN) Urine Waxy Casts None seen (NONE SEEN) Urine Red Blood Cell Casts None seen (NONE SEEN) Urine White Blood Cell Casts None seen (NONE SEEN) Urine Mucus None seen (None Seen) Urine Trichomonas None seen (NONE SEEN) Urine Yeast None (NONE SEEN) Urinalysis Comment None Urine Culture Reflexed Not indicated Urine Legionella pneumophilia Ag Negative (Negative) Hemoglobin A1c 8.2% (4.8-5.6) Test 04/27/17 05:45 04/28/17 05:20 Procalcitonin 0.02ng/mL (0.00-0.08) White Blood Count 23.2th/mm3 (3.8-10.1) Red Blood Count 5.65mil/mm3 (3.90-5.20) Hemoglobin 15.0g/dL (12.0-15.6) Hematocrit 45.7% (35.0-46.0) Mean Corpuscular Volume 80.9fL (81-100) Mean Corpuscular Hemoglobin 26.5pg (27.0-35.0) Mean Corpuscular Hemoglobin Concent 32.8% (32.0-37.0) Red Cell Distribution Width 14.6% (12.3-15.4) Platelet Count 311bil/L (150-400) Neutrophils (%) (Auto) 85.1% (40-74) Lymphocytes (%) (Auto) 8.6% (14-46) Monocytes (%) (Auto) 5.6% (4-12) Eosinophils (%) (Auto) 0% (0-5) Basophils (%) (Auto) 0% (0-3) Sodium Level 137mEq/L (134-144) Potassium Level 4.6mEq/L (3.5-5.2) Chloride Level 99mEq/L (97-108) Carbon Dioxide Level 22mmol/L (18-29) Blood Urea Nitrogen 21mg/dL (8-27) Creatinine 0.64mg/dL (0.57-1.00) Estimat Glomerular Filtration Rate 134mL/min (>59) Glucose Level 296mg/dL (60-99) Calcium Level 9.2mg/dL (8.5-10.1) Discharge Medications Discharge Medications Albuterol Neb Soln (Albuterol Neb Soln) 2.5 Mg/3 Ml Vial.neb 2.5 MG INHALATION TID (Reported) Aspirin (Aspirin) 81 Mg Tablet.dr 81 MG PO DAILY Prescribed by: DARLYN CUMMINGS DO Azithromycin (Zithromax) 250 Mg Tablet 250 MG PO DAILY Prescribed by: BASIL WILCOX DO Cyclobenzaprine (Cyclobenzaprine) 5 Mg Tablet 2.5 MG PO HS (Reported) Diltiazem ER (Cardizem CD) 240 Mg Cap.er.24h 240 MG PO DAILY Prescribed by: DARLYN CUMMINGS DO Fluticasone/Salmeterol (Advair 250-50 Diskus) 1 Puff/Dose Puff 1 PUFF INHALATION BID Prescribed by: DARLYN CUMMINGS DO Insulin Aspart (NovoLOG U-100 Pen) 100 Unit/Ml Insuln.pen 12 UNITS SUBQ TIDAC ( Reported) Insulin Glargine (Lantus U100 Insulin Vial) 100 Unit/Ml Vial 35 UNIT SUBQ HS ( Reported) Losartan Potassium (Losartan Potassium) 25 Mg Tablet 25 MG PO DAILY (Reported) Omeprazole (Omeprazole) 40 Mg Capsule.dr 40 MG PO BID Prescribed by: SAY MONTANA MD Polyethylene Glycol 3350 (Polyethylene Glycol 3350) 17 Gm Powd.pack 17 GM PO DAILY 17gm, 1 capfull, with your coffee in the am. Extra water will help as well. Prescribed by: SAY MONTANA MD Prednisone (Deltasone) 20 Mg Tablet 40 MG PO DAILY Prescribed by: BASIL WILCOX DO Tiotropium [place] (Spiriva) 18 Mcg Cap.w.dev 18 MCG IH DAILY Prescribed by: DARLYN CUMMINGS DO As needed Albuterol HFA (Albuterol HFA) 8.5 Gm Hfa.aer.ad 2 PUFF IH Q4 PRN PRN For Shortness of Breath Prescribed by: DARLYN CUMMINGS DO Cyclobenzaprine (Cyclobenzaprine) 10 Mg Tablet 10 MG PO BID PRN PRN Spasm ( Reported) Insulin Aspart (NovoLOG U-100 Pen) 100 Unit/Ml Insuln.pen 0-5 UNITS SUBQ sliding scale PRN PRN sliding scale (Reported) Oxycodone (Roxicodone) 5 Mg Tablet 5-10 MG PO Q4H PRN PRN For Pain (Reported) hydrOXYzine Hcl (HydrOXYzine Hcl) 25 Mg Tablet 25-50 MG PO Q6 HOURS PRN PRN For Spasm (Reported) Followup Plan Disposition: Home Follow-up plan Continue taking medications as prescribed; Azithromycin 250mg PO daily for 3 additional days starting tomorrow, and Prednisone 40mg PO for 4 additional days also starting tomorrow. Follow up with your primary care doctor within 1 week of discharge, sooner if your breathing effort worsens or with other concerns. Discharge Diet: No restrictions Discharge Activity: No restrictions Follow-up Provider: Nela Mike MD Follow-up with PCP in: 1 week Time spent >35 minutes copies to: Nela Mike MD, Benjamin P DO Apr 28, 2017 10:45
[2017-04-28] MEDS ORDERED: PRED-508 PO (10:50)
[2017-04-28] MEDS ORDERED: ZIT250 PO (10:50)
--- NOTE | 2017-04-28 10:50 | PCM.DIMED ---
Discharge Instructions Date of Service Apr 28, 2017 Dates of Hospitalization Apr 26, 2017 at 20:07 Discharge Diagnosis Discharge Diagnosis COPD exacerbation Diet Discharge Diet: No restrictions Activity Discharge Activity: No restrictions Patient Instructions Follow-up plan Continue taking medications as prescribed; Azithromycin 250mg PO daily for 3 additional days starting tomorrow, and Prednisone 40mg PO for 4 additional days also starting tomorrow. Follow up with your primary care doctor within 1 week of discharge, sooner if your breathing effort worsens or with other concerns. Follow-up Provider: Nela Mike MD Follow-up with PCP in: 1 week Basil Wilcox DO Apr 28, 2017 10:50
--- NOTE | 2017-04-28 11:12 | NUR ---
Social Work-discharge: Data:EMR reviewed. Pt is on day 2 of hospitalization for COPD exac per H&P. Pt is medically stable for discharge. SW arranged transport for pt via [facility] for 1415, pt will need to be in the main lobby. Pt to continue with home O2 and nebulizer through [facility]. SW updated pt at bedside of discharge time and plan, no other SW needs. All updated and agreeable to plan. Assessment:Pt who is independent at baseline. Plan:Pt to discharge home today via [facility] at 1415. No other SW needs identified. All updated and agreeable to plan. DEQUAN Wright
--- NOTE | 2017-04-28 13:40 | NUR ---
Discharge Pt discharged at this time, all belonging gathered and returned to pt, VSS, no complains of increased pain or SOB, on RA. Hard copy of new scripts given to pt. IV D/cd intact, tele monitor removed. Discharge packet printed and reviewed with pt. Pt awaiting ride in room at this time.
== END 2017-04-28 14:03 | disposition home or self-care (01) | DRG 189 ==
LOC: SED 16:35 → MPC 20:07
PROVIDERS: ADMIT Family Medicine; ATTEND Family Medicine
DX: J96.20 Acute and chronic respiratory failure, unspecified whether with hypoxia or hypercapnia (principal); Z79.51 Long term (current) use of inhaled steroids; J44.1 Chronic obstructive pulmonary disease with (acute) exacerbation; K21.9 Gastro-esophageal reflux disease without esophagitis; E11.9 Type 2 diabetes mellitus without complications; I10 Essential (primary) hypertension; E78.5 Hyperlipidemia, unspecified; Z99.81 Dependence on supplemental oxygen; Z79.82 Long term (current) use of aspirin; Z79.4 Long term (current) use of insulin; Z87.891 Personal history of nicotine dependence; G47.33 Obstructive sleep apnea (adult) (pediatric); M79.7 Fibromyalgia